=== PATIENT | female | born 1955 | race Caucasian/White ===

== ENCOUNTER 2021-12-17 21:09 | Emergency (ER) | payer MEDICARE ==
[~2021-12-17] VITALS: Ht 175.3 cm; Wt 90.7 kg
[2021-12-17 21:50] LABS: BASOPHILS ABSOLUTE AUTO 0.04 K/mm3 (0.00-0.23); BASOPHILS PERCENT AUTO 1 % (0-2); EOSINOPHILS ABSOLUTE AUTO 0.17 K/mm3 (0.00-0.68); EOSINOPHILS PERCENT AUTO 2 % (0-6); Hematocrit 35.6 % (33.0-51.0); Hemoglobin 11.5 g/dL (11.5-16.0); IMMATURE GRAN ABSOLUTE AUTO 0.03 K/mm3 (0.00-0.10); IMMATURE GRAN PERCENT AUTO 0 % (0-1); LYMPHOCYTES ABSOLUTE AUTO 2.74 K/mm3 (0.84-5.20); LYMPHOCYTES PERCENT AUTO 33 % (21-46); MONOCYTES ABSOLUTE AUTO 0.55 K/mm3 (0.16-1.47); MONOCYTES PERCENT AUTO 7 % (4-13); Mean Corpuscular HGB 30.3 pg (26.0-34.0); Mean Corpuscular HGB Conc 32.3 g/dL (31.5-36.5); Mean Corpuscular Volume 94 fL (80-100); Mean Platelet Volume 12.6 fL (9.1-12.4); NEUTROPHILS ABSOLUTE AUTO 4.75 K/mm3 (1.96-9.15); NEUTROPHILS PERCENT AUTO 57 % (41-73); Platelet Count 170 K/mm3 (150-400); RDW Standard Deviation 44.4 fL (35.1-46.3); White Blood Cell Count 8.28 K/mm3 (4.00-11.30)
[2021-12-17 22:35] LABS: Bilirubin, Total 0.5 mg/dL (0.1-1.0); Bun/Creatinine Ratio 19.5 (12.0-20.0); Calcium, Blood 10.8 mg/dL (8.5-10.1); Creatinine, Blood 1.69 mg/dL (0.40-1.00)
[2021-12-18] MEDS ORDERED: CATAPRES0.1 MG PO (04:17)
[2021-12-18] MEDS ORDERED: ALLO300 PO (04:18)
[2021-12-18] MEDS ORDERED: DULOXETINE HCL60 M1 PO (04:19)
[2021-12-18] MEDS ORDERED: FUROSEMIDE20 MG PO (04:21)
[2021-12-18] MEDS ORDERED: DOXEPIN HCL PO (04:22)
[2021-12-18] MEDS ORDERED: EUTHYROX50 MC1 PO (04:23)
[2021-12-18] MEDS ORDERED: LISI20 PO (04:24)
[2021-12-18] MEDS ORDERED: MELO7.5 PO (04:24)
[2021-12-18] MEDS ORDERED: METO5A PO (04:25)
[2021-12-18] MEDS ORDERED: ROSUVASTATIN CA10 MG PO (04:26)
[2021-12-18] MEDS ORDERED: MONT10T PO (04:26)
[2021-12-18] MEDS ORDERED: NOVOLOG FL100 UNIT/3 SC (04:28)
[2021-12-18] MEDS ORDERED: HYDR100 PO (04:30)
[2021-12-18] MEDS ORDERED: LIOT25 PO (05:52)
[2021-12-18] MEDS ORDERED: AMLO5 PO (06:30)
== END 2021-12-18 06:37 | disposition home or self-care (01) ==
LOC: ER 21:09
PROVIDERS: Physician Assistant
DX: I10 Essential (primary) hypertension (principal); R79.89 Other specified abnormal findings of blood chemistry; Z79.899 Other long term (current) drug therapy; Z88.5 Allergy status to narcotic agent; Z88.8 Allergy status to other drugs, medicaments and biological substances; Z79.4 Long term (current) use of insulin
CPT/HCPCS: 36415; 80053; 85025; A9270; J0360

== ENCOUNTER 2023-05-03 10:23 | Day surgery (SDC) | payer OTHER ==
[~2023-05-03] VITALS: Ht 175.3 cm; Wt 93.8 kg
[~2023-05-03 10:23] MED LIST: ALLO300 PO; AMLO5 PO; CATAPRES0.1 MG PO; DOXEPIN HCL PO; DULOXETINE HCL60 M1 PO; EUTHYROX50 MC1 PO; FUROSEMIDE20 MG PO; HYDR100 PO; LIOT25 PO; LISI20 PO; MELO7.5 PO; METO5A PO; MONT10T PO; NOVOLOG FL100 UNIT/3 SC; ROSUVASTATIN CA10 MG PO
[2023-05-03] MEDS ORDERED: ASPI300S PR (10:47)
[2023-05-03 11:49] VITALS: BP 124/84
--- NOTE | 2023-05-03 12:14 | NUR ---
05/03/23 1214 Melvina Johns PATIENT GIVEN INCENTIVE SPIROMETER DUE TO SPO2 FLUCTUATING BETWEEN 90-96%. PATIENT REPORTS THIS IS NORMAL FOR HER. AFTER USING INCENTIVE SPIROMETER SPO2 MAINTAINED AT 99% FOR ABOUT 5 MINUTES THEN WOULD FLUCTUATE BETWEEN 90-96%. PRIOR TO DISCHARGE SPO2 MAINTAINING AT 94% ON RA.
== END 2023-05-03 12:11 | disposition home or self-care (01) ==
LOC: ORSCSDS 10:23
PROVIDERS: Student in an Organized Health Care Education/Training Program
PROC: 08RJ3JZ Replacement of Right Lens with Synthetic Substitute, Percutaneous Approach (ICD-10-PCS; principal; 2023-05-03 11:45)
DX: E11.36 Type 2 diabetes mellitus with diabetic cataract (principal); H21.81 Floppy iris syndrome; I12.9 Hypertensive chronic kidney disease with stage 1 through stage 4 chronic kidney disease, or unspecified chronic kidney disease; E11.22 Type 2 diabetes mellitus with diabetic chronic kidney disease; N18.9 Chronic kidney disease, unspecified; Z79.82 Long term (current) use of aspirin; Z79.4 Long term (current) use of insulin; Z79.899 Other long term (current) drug therapy; Z87.891 Personal history of nicotine dependence
CPT/HCPCS: 82947; J2250; J3010; J7040; V2632

== ENCOUNTER 2024-10-21 22:26 | Inpatient (IN) | payer OTHER ==
[~2024-10-21] VITALS: Ht 175.3 cm; Wt 77.5 kg
[~2024-10-21 22:26] MED LIST changes: +ASPI300S PR; -CATAPRES0.1 MG PO; +CATAPRES0.2 M1 PO; -LISI20 PO; +LISINOPRIL PO
[2024-10-21] MEDS ORDERED: NS 1,000 ML IV SCH (22:40)
[2024-10-21 22:52] LABS: BASOPHILS ABSOLUTE AUTO 0.03 K/mm3 (0.00-0.23); BASOPHILS PERCENT AUTO 1 % (0-2); EOSINOPHILS ABSOLUTE AUTO 0.07 K/mm3 (0.00-0.68); EOSINOPHILS PERCENT AUTO 1 % (0-6); Hemoglobin 12.6 g/dL (11.5-16.0); IMMATURE GRAN ABSOLUTE AUTO 0.01 K/mm3 (0.00-0.10); IMMATURE GRAN PERCENT AUTO 0 % (0-1); LYMPHOCYTES ABSOLUTE AUTO 2.12 K/mm3 (0.84-5.20); LYMPHOCYTES PERCENT AUTO 36 % (21-46); MONOCYTES ABSOLUTE AUTO 0.35 K/mm3 (0.16-1.47); MONOCYTES PERCENT AUTO 6 % (4-13); Mean Corpuscular HGB 30.5 pg (26.0-34.0); Mean Corpuscular HGB Conc 32.3 g/dL (31.5-36.5); Mean Corpuscular Volume 94 fL (80-100); NEUTROPHILS ABSOLUTE AUTO 3.27 K/mm3 (1.96-9.15); NEUTROPHILS PERCENT AUTO 56 % (41-73); Platelet Count 117 K/mm3 (150-400); RDW Coefficient Variation 14.1 % (11.7-14.2); RDW Standard Deviation 49.1 fL (35.1-46.3); Red Blood Cell Count 4.13 M/mm3 (3.80-5.20); White Blood Cell Count 5.85 K/mm3 (4.00-11.30)
[2024-10-21 22:55] LABS: Mean Platelet Volume 13.3 fL (9.1-12.4)
[2024-10-21 23:06] LABS: U Amphetamine Screen Not Detected; U Barbituate Screen Not Detected; U Benzodiazapine Screen Not Detected; U Buprenorphine Screen Not Detected; U Cannabinoids Screen Not Detected; U Cocaine Screen Not Detected; U Methadone Screen Not Detected; U Methamphetamine Screen Not Detected; U Opiates Screen Not Detected; U Oxycodone Screen DETECTED; U Phencyclidine Screen Not Detected
[2024-10-21 23:18] LABS: Ethanol (Alcohol), Blood, Med <3 mg/dL
[2024-10-21 23:19] LABS: Alanine Aminotransfer (ALT/SGP 18 U/L (12-78); Albumin, Blood 3.5 g/dL (3.4-5.0); Albumin/Globulin Ratio 1.1 (0.8-1.8); Alk Phos 105 U/L (50-136); Anion Gap 10 mmol/L (3-11); Aspartate Aminotrans (AST/SGOT 21 U/L (12-37); Bilirubin, Total 0.5 mg/dL (0.1-1.0); Blood Urea Nitrogen 54 mg/dL (8-24); Bun/Creatinine Ratio 19.4 (12.0-20.0); CO2, Blood 18 mmol/L (21-32); Calcium, Blood 7.9 mg/dL (8.5-10.1); Chloride, Blood 109 mmol/L (98-108); Creatinine, Blood 2.78 mg/dL (0.40-1.00); Globulin, Blood 3.3 g/dL (2.2-4.0); Glomerular Filtration Rate 18 (60-); Glucose, Blood 93 mg/dL (70-99); Potassium, Blood 4.2 mmol/L (3.5-5.5); Sodium, Blood 133 mmol/L (136-145); Total Protein, Blood 6.8 g/dL (6.4-8.2)
[2024-10-21 23:59] LABS: Source, Urine Clean Catch
[2024-10-22 00:04] LABS: Bilirubin, Urine Neg (Neg); Blood, Urine Neg (Neg); Glucose Qualitative, Urine 1+ (Neg); Ketones, Urine 2+ (Neg); Leukocyte Esterase, Urine Neg (Neg); Nitrite, Urine Neg (Neg); Protein, Urine Neg (Neg); Urobilinogen, Urine NORM (Normal)
[2024-10-22 00:12] LABS: Appearance, Urine Clear (Clear); Color, Urine Yellow (P-Yellow)
[2024-10-22] MEDS ORDERED: Ondansetron HCl 2 MG / ML 2ML Vial IV PRN (00:20)
[2024-10-22] MEDS ORDERED: NS 1,000 ML IV SCH ×3 (00:20→11:25)
[2024-10-22 00:26] LABS: Magnesium, Blood 2.3 mg/dL (1.6-2.4)
[2024-10-22] MEDS ORDERED: NS 1,000 ML IV ONE (00:31)
[2024-10-22 04:22] LABS: Free Thyroxine 0.98 ng/dL (0.70-1.60)
[2024-10-22 04:31] VITALS: BP 126/72
--- NOTE | 2024-10-22 04:57 | NUR ---
SHIFT SUMMARY PT ARRIVED TO UNIT @ 0400. A&OX4. POOR HISTORIAN AND MILDLY FORGETFUL HOWEVER ABLE TO FOLLOW COMMANDS APPROPRIATELY AND VERY PLEASANT. PT STATES SHE IS UNSURE WHY SHE TAKES MOST OF HER MEDICATIONS AND STATES SHE TAKES 15MG OXYCODONE FOR HER BACK PAIN 3X/DAY. NO PAIN NOTED AT THIS TIME. VSS ON RA. BPs WNL NOW. NS RUNNING @ 75CC/HR. PT UNDERSTANDING OF NPO STATUS AND REMAINING BEDREST UNTIL FEELING STRONGER. PT STATES SHE FELL YESTERDAY AT HOME D/T INCREASED WEAKNESS. NO FURTHER QUESTIONS OR CONCERNS AT THIST TIME. CALL ROLDAN WITHIN REACH WITH BED ALARM ON. WILL CONTINUE WITH PLAN OF CARE.
[2024-10-22 07:13] LABS: BASOPHILS ABSOLUTE AUTO 0.03 K/mm3 (0.00-0.23); BASOPHILS PERCENT AUTO 1 % (0-2); EOSINOPHILS ABSOLUTE AUTO 0.09 K/mm3 (0.00-0.68); EOSINOPHILS PERCENT AUTO 2 % (0-6); Hematocrit 37.7 % (33.0-51.0); Hemoglobin 12.2 g/dL (11.5-16.0); IMMATURE GRAN ABSOLUTE AUTO 0.01 K/mm3 (0.00-0.10); IMMATURE GRAN PERCENT AUTO 0 % (0-1); LYMPHOCYTES ABSOLUTE AUTO 1.61 K/mm3 (0.84-5.20); LYMPHOCYTES PERCENT AUTO 37 % (21-46); MONOCYTES ABSOLUTE AUTO 0.19 K/mm3 (0.16-1.47); MONOCYTES PERCENT AUTO 4 % (4-13); Mean Corpuscular HGB 31.1 pg (26.0-34.0); Mean Corpuscular HGB Conc 32.4 g/dL (31.5-36.5); Mean Corpuscular Volume 96 fL (80-100); Mean Platelet Volume 13.4 fL (9.1-12.4); NEUTROPHILS ABSOLUTE AUTO 2.43 K/mm3 (1.96-9.15); NEUTROPHILS PERCENT AUTO 56 % (41-73); Platelet Count 96 K/mm3 (150-400); RDW Coefficient Variation 14.5 % (11.7-14.2); RDW Standard Deviation 51.8 fL (35.1-46.3); Red Blood Cell Count 3.92 M/mm3 (3.80-5.20); White Blood Cell Count 4.36 K/mm3 (4.00-11.30)
[2024-10-22 07:29] LABS: Albumin/Globulin Ratio 0.9 (0.8-1.8); Bilirubin, Total 0.4 mg/dL (0.1-1.0); Calcium, Blood 7.2 mg/dL (8.5-10.1); Creatinine, Blood 2.35 mg/dL (0.40-1.00); Globulin, Blood 3.2 g/dL (2.2-4.0); Total Protein, Blood 6.2 g/dL (6.4-8.2)
[2024-10-22 08:09] VITALS: BP 133/70
[2024-10-22] MEDS ORDERED: Enoxaparin 30 MG/0.3 ML SYR SC SCH (09:00)
[2024-10-22] MEDS ORDERED: CALC.25 PO (10:07)
[2024-10-22] MEDS ORDERED: TRULICITY SC (10:09)
[2024-10-22] MEDS ORDERED: POTCHL20ER PO (10:10)
[2024-10-22] MEDS ORDERED: CINA30 PO (10:12)
[2024-10-22] MEDS ORDERED: AMLODIPINE BESY10 MG PO (10:14)
[2024-10-22] MEDS ORDERED: OXYCODONE HCL15 MG PO (10:18)
[2024-10-22] MEDS ORDERED: DOXE50 PO (10:26)
[2024-10-22] MEDS ORDERED: FARXIGA10 MG PO (10:27)
[2024-10-22] MEDS ORDERED: BUSPIRONE HCL30 M6 PO (10:29)
[2024-10-22] MEDS ORDERED: PROLIA60 MG/1 ML SC (10:30)
[2024-10-22] MEDS ORDERED: OxyCODONE HCL 5 MG TAB PO PRN (11:20)
[2024-10-22] MEDS ORDERED: Allopurinol 300 MG Tab PO SCH (12:00)
--- NOTE | 2024-10-22 15:09 | NUR ---
UPON SHIFT ASSESSMENT, PT REPORTS TENDERNESS IN LOWER QUADRANTS OF ABDOMEN. SHE REPORTS THAT IS HER WAY OF TELLING HER BLADDER IS FULL AT HOME BUT DOES NOT HAVE THE SENSATION TO URINATE. WICKING SYSTEM IN PLACE AND OUTPUT WAS 300ML. PT EDUCATED ON HOW WICKING SYSTEM WORKS AND ENCOURAGED TO GO WHEN SHE HAS SENSATION. PT CONFIRMED UNDERSTANDING BY RESTATING. UPON REASSESSMENT, WICKING SYSTEM HAD A TOTAL OUTPUT OF 450ML. PT REPORTS MORE TENDERNESS IN LOWER QUADRANTS OF ABDOMEN AND SEVERE DISTENTION. BLADDER SCAN PERFORMED AND SHOWED >2300ML. DR. BURGOS NOTIFIED AND INSTRUCTED TO STRAIGHT CATH AND ORDERED RENAL ULTRASOUND. STRAIGHT CATH PERFORMED WITH AN OUTPUT OF 2400ML CLEAR YELLOW URINE. PT TOLERATED STRAIGHT CATH WELL AND REPORTED NO TENDERNESS IN ABDOMEN. ABDOMEN SOFT AND NONDISTENDED.
[2024-10-22 17:12] VITALS: BP 132/74
--- NOTE | 2024-10-22 17:34 | NUR ---
PT A&OX4 WITH FREQUENT DROWSINESS. SHE RESPONDS TO VERBAL STIMULI. SHE FOLLOWS COMMANDS AND IS CALM AND COOPERATIVE. VSS ON RA AND BPS WNL. NS RUNNING AT 100ML/HR FOR 24 HOURS. ABDOMEN TENDERNESS AND DISTENTION. BLADDER SCAN AND STRAIGHT CATH COMPLETED PER MD. SEE NURSE NOTES. RENAL ULTRASOUND ORDERD. PT HAS TREMORS AND IS DIAPHORETIC. SHE DENIES ALCOHOL USE. PT TAKES OXYCODONE 15MG 3X/DAY FOR CHRONIC LOW BACK PAIN. PT REPORTS 6/10 PAIN IN BACK. MEDICATED PER EMAR. PT SITTING UP IN BED EATING DINNER WITH CALL LIGHT IN REACH AND BED LOCKED, LOW, AND ALARM ON.
[2024-10-22] MEDS ORDERED: CloNIDine 0.1 MG Tab PO SCH (17:45)
[2024-10-22] MEDS ORDERED: Doxepin HCL 50 MG CAP PO SCH ×2 (21:00)
[2024-10-22] MEDS ORDERED: Montelukast Sodium 10 MG Tab PO SCH (21:00)
[2024-10-22] MEDS ORDERED: BusPIRone HCl 10 MG Tab PO SCH (21:00)
[2024-10-22] MEDS ORDERED: DULoxetine HCL 60 MG Capsule DR PO SCH (21:00)
[2024-10-22] MEDS ORDERED: Rosuvastatin Calcium 10 MG Tab PO SCH (21:00)
[2024-10-22 21:02] VITALS: BP 109/71
[2024-10-22 23:27] VITALS: BP 113/72
[2024-10-23 03:39] VITALS: BP 134/74
--- NOTE | 2024-10-23 04:23 | NUR ---
SHIFT SUMMARY THIS RN ASSUMED CARE OF PATIENT AT 1900. PT LETHARGIC BUT EASILY AWOKEN BY VERBAL STIMULI. ORIENTED X3-4. UNSURE OF SPECIFIC DATE BUT KNOWS MONTH/YEAR. NO OTHER NEURO DEFICITS NOTED. PT WITH 1200MLS AT BEGINNING OF SHIFT ON BLADDER SCAN. PER MD BURGOS, CALDWELL CATHETER PLACED FOR RETENTION. PT WITH OVER 2L OUT THIS SHIFT. COMPLETED NS INFUSION PER EMAR. VSS. BED IN LOWEST POSITION AND CALL LIGHT WITHIN REACH. THIS RN WILL REPORT TO ONCOMING DAYSHIFT RN.
[2024-10-23 04:34] LABS: Calcium, Blood 7.3 mg/dL (8.5-10.1); Creatinine, Blood 1.9 mg/dL (0.40-1.00); Potassium, Blood 4.2 mmol/L (3.5-5.5)
[2024-10-23] MEDS ORDERED: Levothyroxine Sodium 0.05 MG Tab PO SCH (06:00)
[2024-10-23 07:39] VITALS: BP 122/77
[2024-10-23] MEDS ORDERED: NS 1,000 ML IV ONE (09:00)
[2024-10-23] MEDS ORDERED: Calcitriol 0.25 MCG Cap PO SCH (09:00)
[2024-10-23] MEDS ORDERED: Empagliflozin 25 MG TAB PO SCH (09:00)
[2024-10-23] MEDS ORDERED: Tamsulosin HCl 0.4 MG Cap PO SCH (09:00)
[2024-10-23 15:51] VITALS: BP 145/61
--- NOTE | 2024-10-23 17:27 | NUR ---
PT A&OX3 TO PERSON, PLACE, AND DATE. POOR HISTORNIAN AND REPORTS SHE DOES NOT REMEMBER WHY SHE WAS BROUGHT TO ED. 1 PERSON ASSIST TO CHAIR. PT TOLERATED AMBULATING WELL BUT LE WEAK. CALDWELL DRAINING TO GRAVITY CLEAR YELLOW URINE. PT REPORTED NO PAIN OR BURNING. NO S/S OF INFECTION. VSS ON RA. PT TRANSFERRED TO MEDICAL AND REPORT GIVEN TO NURSE.
--- NOTE | 2024-10-23 18:07 | NUR ---
ASSUMED CARE OF PT. PT ARRIVED FROM PCU A/O X4 SEEMS LIKE MENTATION IS A LOT BETTER THIS DAY. PT ABLE TO FOLLOW COMMANDS AND MAKE NEEDS KNOWN, CALL LIGHT WITHIN REACH AND BEDCHECK IN PLACE .
[2024-10-23 19:33] VITALS: BP 171/76
[2024-10-23 19:35] VITALS: BP 168/73
[2024-10-23 23:55] VITALS: BP 168/77
[2024-10-24] VITALS (7 sets, daily range): BP systolic 154–203; BP diastolic 70–97
--- NOTE | 2024-10-24 03:42 | NUR ---
SHIFT SUMMARY PT ALERT ORIENTED X 4 ABLE TO VERBALIZE NEEDS REQUIRES 1 PERSON SBA TO AMBULATE TO THE BATHROOM. CALDWELL CATHETER INTACT DRAINING YELLOW URINE. NO C/O PAIN THIS SHIFT. 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 BP SLIGHTLY HIGH AT 168. ALL OTHER VSS ON RA SATTING AT 99%. LABS TO BE DONE THIS AM. RESTING IN BED AT THIS TIME WITH CALL LIGHT IN REACH
[2024-10-24] MEDS ORDERED: HydrALAZINE HCl 20 MG / ML 1ML Vial IV ONE (05:05)
[2024-10-24 05:39] LABS: Albumin, Blood 2.8 g/dL (3.4-5.0); Anion Gap 11 mmol/L (3-11); Blood Urea Nitrogen 27 mg/dL (8-24); Bun/Creatinine Ratio 19.1 (12.0-20.0); CO2, Blood 21 mmol/L (21-32); Chloride, Blood 115 mmol/L (98-108); Creatinine, Blood 1.41 mg/dL (0.40-1.00); Glomerular Filtration Rate 41 (60-); Glucose, Blood 90 mg/dL (70-99); Phosphorus, Blood 2.9 mg/dL (2.5-4.9); Potassium, Blood 3.5 mmol/L (3.5-5.5); Sodium, Blood 143 mmol/L (136-145)
[2024-10-24] MEDS ORDERED: AmLODIPine Besylate 5 MG Tab PO SCH (09:00)
[2024-10-24] MEDS ORDERED: HydrALAZINE HCl 20 MG / ML 1ML Vial IV PRN (15:05)
[2024-10-24] MEDS ORDERED: Acetaminophen 325 MG TABLET PO PRN (17:25)
--- NOTE | 2024-10-24 17:40 | NUR ---
SHIFT SUMMARY PT A&OX4, AMB W/ ASSIST, TOLERATING PO, VOIDING, AND PAIN MANAGED PER EMAR. PT HYPERTENSIVE, BUT ASYMPTOMATIC. NEW ORDER RECEIVED FOR HYDRALAZINE PRN AND HOME BP MED, BOTH GIVEN THIS SHIFT. PT WORKED W/ PHYSICAL THERAPY AND TOLERATED IT WELL, SEE THERAPY NOTE. NO OTHER ACUTE CHANGES. CALL LIGHT WITHIN REACH AND PT ABLE TO MAKE NEEDS KNOWN.
[2024-10-25 04:04] VITALS: BP 146/88
--- NOTE | 2024-10-25 05:06 | NUR ---
SHIFT SUMMARY PT SLEPT LONG INTERVALS THROUGH THE NIGHT. MEDICATED FOR HEADACHE PER EMAR. TURNS SELF INDEPENDENTLY IN BED. CALDWELL DRAINING CLEAR YELLOW URINE. BED IN LOWEST POSITION, CALL LIGHT WITHIN REACH, SIDERAILS UP X2.
[2024-10-25 06:06] LABS: Bun/Creatinine Ratio 13.7 (12.0-20.0); Calcium, Blood 9.1 mg/dL (8.5-10.1); Creatinine, Blood 1.61 mg/dL (0.40-1.00)
[2024-10-25 07:36] VITALS: BP 170/85
[2024-10-25 13:20] VITALS: BP 140/81
[2024-10-25 16:24] VITALS: BP 158/88
--- NOTE | 2024-10-25 18:02 | NUR ---
SHIFT SUMMARY PAIN MANAGED PER EMAR. CALDWELL REMOVED AND PT HAD POST VOID OF 800 MLS. PT WORKED W/ PHYSICAL THERAPY AND TOLERATED IT WELL. NO OTHER ACUTE CHANGES. CALL LIGHT WITHIN REACH AND PT ABLE TO MAKE NEEDS KNOWN.
[2024-10-25 19:22] VITALS: BP 177/96
[2024-10-25 23:24] VITALS: BP 149/82
[2024-10-26] VITALS (7 sets, daily range): BP systolic 148–171; BP diastolic 84–95
--- NOTE | 2024-10-26 04:47 | NUR ---
SHIFT SUMMARY PT SLEPT INTERMITTENTLY DURING THE NIGHT. UP TO BATHROOM WITH FWW AND SBA, VOIDING LARGE AMOUNTS AFTER CALDWELL D/C'D DURING PRIOR SHIFT. PT HAS DENIED THE NEED FOR PAIN MEDICATION THIS SHIFT. BED IN LOWEST POSITION, CALL LIGHT WITHIN REACH, SIDERAILS UP X2.
[2024-10-26 06:04] LABS: BASOPHILS ABSOLUTE AUTO 0.04 K/mm3 (0.00-0.23); BASOPHILS PERCENT AUTO 1 % (0-2); EOSINOPHILS ABSOLUTE AUTO 0.24 K/mm3 (0.00-0.68); EOSINOPHILS PERCENT AUTO 4 % (0-6); Hemoglobin 13.3 g/dL (11.5-16.0); IMMATURE GRAN ABSOLUTE AUTO 0.01 K/mm3 (0.00-0.10); IMMATURE GRAN PERCENT AUTO 0 % (0-1); LYMPHOCYTES ABSOLUTE AUTO 3.19 K/mm3 (0.84-5.20); LYMPHOCYTES PERCENT AUTO 54 % (21-46); MONOCYTES ABSOLUTE AUTO 0.23 K/mm3 (0.16-1.47); MONOCYTES PERCENT AUTO 4 % (4-13); Mean Corpuscular HGB 30.9 pg (26.0-34.0); Mean Corpuscular HGB Conc 31.7 g/dL (31.5-36.5); Mean Corpuscular Volume 98 fL (80-100); Mean Platelet Volume 12.8 fL (9.1-12.4); NEUTROPHILS ABSOLUTE AUTO 2.19 K/mm3 (1.96-9.15); NEUTROPHILS PERCENT AUTO 37 % (41-73); Platelet Count 138 K/mm3 (150-400); RDW Coefficient Variation 14.1 % (11.7-14.2); RDW Standard Deviation 51.1 fL (35.1-46.3)
[2024-10-26 06:39] LABS: Albumin, Blood 3.4 g/dL (3.4-5.0); Anion Gap 9 mmol/L (3-11); Blood Urea Nitrogen 26 mg/dL (8-24); Bun/Creatinine Ratio 17.3 (12.0-20.0); CO2, Blood 24 mmol/L (21-32); Calcium, Blood 9.6 mg/dL (8.5-10.1); Chloride, Blood 110 mmol/L (98-108); Glomerular Filtration Rate 38 (60-); Glucose, Blood 104 mg/dL (70-99); Phosphorus, Blood 2.6 mg/dL (2.5-4.9); Sodium, Blood 139 mmol/L (136-145)
[2024-10-26] MEDS ORDERED: Lactated Ringer's 1,000 ML IV SCH ×2 (08:45→15:05)
[2024-10-26] MEDS ORDERED: HydroCHLOROthiazide 25 mg Tab PO SCH (09:00)
[2024-10-26 14:31] LABS: Bun/Creatinine Ratio 17.2 (12.0-20.0); Calcium, Blood 9.9 mg/dL (8.5-10.1); Creatinine, Blood 1.51 mg/dL (0.40-1.00); Potassium, Blood 3.9 mmol/L (3.5-5.5)
--- NOTE | 2024-10-26 17:42 | NUR ---
PT IS AOX4, STBY WITH WALKER TO BATHROOM. PT HAD NO C/O PAIN, SOB, OR CHEST PAIN. PT HAS BEEN ON FLUIDS THROUGH THE DAY. PT HAS NO QUESTIONS OR CONCERNS AT THIS TIME.
[2024-10-27 03:47] VITALS: BP 151/88
[2024-10-27 06:32] LABS: BASOPHILS ABSOLUTE AUTO 0.03 K/mm3 (0.00-0.23); BASOPHILS PERCENT AUTO 1 % (0-2); EOSINOPHILS ABSOLUTE AUTO 0.26 K/mm3 (0.00-0.68); EOSINOPHILS PERCENT AUTO 6 % (0-6); Hematocrit 35.3 % (33.0-51.0); Hemoglobin 11.3 g/dL (11.5-16.0); IMMATURE GRAN ABSOLUTE AUTO 0.01 K/mm3 (0.00-0.10); IMMATURE GRAN PERCENT AUTO 0 % (0-1); LYMPHOCYTES PERCENT AUTO 50 % (21-46); MONOCYTES ABSOLUTE AUTO 0.28 K/mm3 (0.16-1.47); MONOCYTES PERCENT AUTO 6 % (4-13); Mean Corpuscular Volume 97 fL (80-100); NEUTROPHILS ABSOLUTE AUTO 1.69 K/mm3 (1.96-9.15); NEUTROPHILS PERCENT AUTO 37 % (41-73); Platelet Count 109 K/mm3 (150-400); RDW Coefficient Variation 13.6 % (11.7-14.2); RDW Standard Deviation 48.3 fL (35.1-46.3); Red Blood Cell Count 3.64 M/mm3 (3.80-5.20); White Blood Cell Count 4.57 K/mm3 (4.00-11.30)
[2024-10-27 06:53] LABS: Bun/Creatinine Ratio 16.9 (12.0-20.0); Creatinine, Blood 1.42 mg/dL (0.40-1.00); Potassium, Blood 3.8 mmol/L (3.5-5.5)
[2024-10-27 07:29] VITALS: BP 152/86
[2024-10-27 11:46] VITALS: BP 162/89
[2024-10-27 15:16] VITALS: BP 165/85
--- NOTE | 2024-10-27 17:54 | NUR ---
PT HAS HAD C/O HEADACHE TODAY BUT PRN TYLENOL RESOLVED PAIN. PT IS AOX4,VSS AND ON RA. PT HAS NO QUESTIONS OR CONCERNS AT THIS TIME
[2024-10-27 19:18] VITALS: BP 177/89
[2024-10-28 00:47] VITALS: BP 129/79
[2024-10-28 03:48] VITALS: BP 132/84
[2024-10-28 05:57] LABS: BASOPHILS ABSOLUTE AUTO 0.04 K/mm3 (0.00-0.23); BASOPHILS PERCENT AUTO 1 % (0-2); EOSINOPHILS ABSOLUTE AUTO 0.24 K/mm3 (0.00-0.68); EOSINOPHILS PERCENT AUTO 5 % (0-6); Hematocrit 35.5 % (33.0-51.0); Hemoglobin 11.3 g/dL (11.5-16.0); IMMATURE GRAN ABSOLUTE AUTO 0.01 K/mm3 (0.00-0.10); IMMATURE GRAN PERCENT AUTO 0 % (0-1); LYMPHOCYTES ABSOLUTE AUTO 2.72 K/mm3 (0.84-5.20); LYMPHOCYTES PERCENT AUTO 52 % (21-46); MONOCYTES ABSOLUTE AUTO 0.29 K/mm3 (0.16-1.47); MONOCYTES PERCENT AUTO 6 % (4-13); Mean Corpuscular HGB 31.2 pg (26.0-34.0); Mean Corpuscular HGB Conc 31.8 g/dL (31.5-36.5); Mean Corpuscular Volume 98 fL (80-100); Mean Platelet Volume 12.8 fL (9.1-12.4); NEUTROPHILS PERCENT AUTO 37 % (41-73); Platelet Count 108 K/mm3 (150-400); RDW Coefficient Variation 13.8 % (11.7-14.2); RDW Standard Deviation 49.5 fL (35.1-46.3); Red Blood Cell Count 3.62 M/mm3 (3.80-5.20)
[2024-10-28 06:21] LABS: Bun/Creatinine Ratio 18.3 (12.0-20.0); Calcium, Blood 9.9 mg/dL (8.5-10.1); Creatinine, Blood 1.42 mg/dL (0.40-1.00); Potassium, Blood 3.8 mmol/L (3.5-5.5)
[2024-10-28 07:24] VITALS: BP 148/89
[2024-10-28] MEDS ORDERED: HYDCHL25 PO (12:52)
[2024-10-28] MEDS ORDERED: TAMS.4ER PO (12:53)
--- NOTE | 2024-10-28 16:34 | NUR ---
pt dicharged. all pivs removed and d/c packet in hand
== END 2024-10-28 16:00 | disposition home or self-care (01) | DRG 917 ==
LOC: ER 22:26 → ERHOLD 22:27 → PCU 22:27 → MEDS 10-23 16:03
PROVIDERS: Emergency Medicine; Family Medicine; Internal Medicine; ADMIT Internal Medicine
DX: T40.2X1A Poisoning by other opioids, accidental (unintentional), initial encounter (principal); G92.8 Other toxic encephalopathy; G93.41 Metabolic encephalopathy; N17.9 Acute kidney failure, unspecified; N20.1 Calculus of ureter; N18.30 Chronic kidney disease, stage 3 unspecified; R33.9 Retention of urine, unspecified; I12.9 Hypertensive chronic kidney disease with stage 1 through stage 4 chronic kidney disease, or unspecified chronic kidney disease; E03.9 Hypothyroidism, unspecified; F32.A Depression, unspecified; E79.0 Hyperuricemia without signs of inflammatory arthritis and tophaceous disease; R94.31 Abnormal electrocardiogram [ECG] [EKG]; E78.5 Hyperlipidemia, unspecified; R60.0 Localized edema; Z88.1 Allergy status to other antibiotic agents; Z88.5 Allergy status to narcotic agent; Z88.8 Allergy status to other drugs, medicaments and biological substances; Z79.890 Hormone replacement therapy; Z79.4 Long term (current) use of insulin; Z79.1 Long term (current) use of non-steroidal anti-inflammatories (NSAID); Z79.82 Long term (current) use of aspirin
CPT/HCPCS: 36415; 70450; 71045; 76770; 80048; 80053; 80069; 80320; 81003; 82140; 82570; 83605; 83735; 83880; 84145; 84300; 84439; 84443; 84484; 85025; 93005; 93010; 96372; 97110; 97116; 97161; 97530; 99285-25; A6590; A9270; G0378; J0360; J1650; J7030; J7120

== ENCOUNTER 2025-03-01 11:46 | Inpatient (IN) | payer OTHER ==
[~2025-03-01] VITALS: Ht 175.3 cm; Wt 84.0 kg
[~2025-03-01 11:46] MED LIST changes: +AMLODIPINE BESY10 MG PO; +BUSPIRONE HCL30 M6 PO; +CALC.25 PO; +CINA30 PO; +DOXE50 PO; +FARXIGA10 MG PO; +HYDCHL25 PO; -LISINOPRIL PO; +OXYCODONE HCL15 MG PO; +POTCHL20ER PO; +PROLIA60 MG/1 ML SC; +TAMS.4ER PO; +TRULICITY SC; +ZESTRIL40 MG PO
[2025-03-01 12:19] LABS: BASOPHILS ABSOLUTE AUTO 0.05 K/mm3 (0.00-0.23); BASOPHILS PERCENT AUTO 0 % (0-2); EOSINOPHILS ABSOLUTE AUTO 0.02 K/mm3 (0.00-0.68); EOSINOPHILS PERCENT AUTO 0 % (0-6); Hematocrit 50.5 % (33.0-51.0); Hemoglobin 17.2 g/dL (11.5-16.0); IMMATURE GRAN ABSOLUTE AUTO 0.04 K/mm3 (0.00-0.10); IMMATURE GRAN PERCENT AUTO 0 % (0-1); LYMPHOCYTES ABSOLUTE AUTO 2.61 K/mm3 (0.84-5.20); LYMPHOCYTES PERCENT AUTO 21 % (21-46); MONOCYTES ABSOLUTE AUTO 0.40 K/mm3 (0.16-1.47); MONOCYTES PERCENT AUTO 3 % (4-13); Mean Corpuscular HGB Conc 34.1 g/dL (31.5-36.5); Mean Corpuscular Volume 90 fL (80-100); NEUTROPHILS ABSOLUTE AUTO 9.35 K/mm3 (1.96-9.15); NEUTROPHILS PERCENT AUTO 75 % (41-73); NRBC ABSOLUTE 0.00 K/mm3 (0.00-0.02); NRBC Auto 0.0 /100 WBC (0.0-0.2); Platelet Count 235 K/mm3 (150-400); RDW Coefficient Variation 13.8 % (11.7-14.2); RDW Standard Deviation 45.9 fL (35.1-46.3)
[2025-03-01 12:50] LABS: Alanine Aminotransfer (ALT/SGP 21.0 U/L (12-78); Albumin, Blood 3.3 g/dL (3.4-5.0); Albumin/Globulin Ratio 0.8 (0.8-1.8); Anion Gap 12.0 mmol/L (3-11); Aspartate Aminotrans (AST/SGOT 32.0 U/L (12-37); Bilirubin, Total 0.7 mg/dL (0.1-1.0); Blood Urea Nitrogen 61.0 mg/dL (8-24); CO2, Blood 12.0 mmol/L (21-32); Calcium, Blood 8.7 mg/dL (8.5-10.1); Chloride, Blood 106.0 mmol/L (98-108); Creatinine, Blood 2.0 mg/dL (0.40-1.00); Globulin, Blood 4.2 g/dL (2.2-4.0); Glucose, Blood 170.0 mg/dL (70-99); Potassium, Blood 3.2 mmol/L (3.5-5.5); Sodium, Blood 127.0 mmol/L (136-145); Total Protein, Blood 7.5 g/dL (6.4-8.2)
[2025-03-01] MEDS ORDERED: NS 1,000 ML IV SCH (13:40)
[2025-03-01 13:51] LABS: Thyroid Stimulating Hormone 0.562 uIU/mL (0.360-4.800)
[2025-03-01 15:35] LABS: Source, Urine Clean Catch
[2025-03-01 15:43] LABS: Bilirubin, Urine Neg (Neg); Color, Urine Yellow (P-Yellow); Glucose Qualitative, Urine 3+ (Neg); Ketones, Urine 2+ (Neg); Leukocyte Esterase, Urine 3+ (Neg); Protein, Urine 2+ (Neg); Specific Gravity, Urine 1.020 (1.003-1.022); Urobilinogen, Urine NORM (Normal)
[2025-03-01 15:54] LABS: Red Blood Cells, Urine 0-2 /hpf (0-2)
[2025-03-01 16:05] LABS: U Amphetamine Screen Not Detected; U Barbituate Screen Not Detected; U Benzodiazapine Screen Not Detected; U Buprenorphine Screen Not Detected; U Cannabinoids Screen DETECTED; U Cocaine Screen Not Detected; U Methadone Screen Not Detected; U Methamphetamine Screen Not Detected; U Opiates Screen Not Detected; U Oxycodone Screen Not Detected; U Phencyclidine Screen Not Detected
[2025-03-01] MEDS ORDERED: Enoxaparin 30 MG/0.3 ML SYR SC SCH (17:00)
[2025-03-01] MEDS ORDERED: Sodium Bicarb 8.4% Inj 75 MEQ in Sodium Chloride 0.45% 1,000 ML IV SCH (17:00)
[2025-03-01] MEDS ORDERED: CefTRIAXone Sodium 1,000 MG in NS 100 ML IV SCH (18:00)
[2025-03-01] MEDS ORDERED: NS 500 ML IV SCH (18:50)
[2025-03-01 20:20] VITALS: BP 175/90
[2025-03-01 21:23] LABS: Anion Gap 12.0 mmol/L (3-11); Blood Urea Nitrogen 58.0 mg/dL (8-24); CO2, Blood 13.0 mmol/L (21-32); Calcium, Blood 7.2 mg/dL (8.5-10.1); Chloride, Blood 109.0 mmol/L (98-108); Creatinine, Blood 1.96 mg/dL (0.40-1.00); Glucose, Blood 121.0 mg/dL (70-99); Potassium, Blood 3.0 mmol/L (3.5-5.5); Sodium, Blood 131.0 mmol/L (136-145)
[2025-03-01] MEDS ORDERED: POTCHL20ER PO (23:09)
[2025-03-01] MEDS ORDERED: CATAPRES0.2 M1 PO (23:11)
[2025-03-02 04:34] VITALS: BP 156/78
[2025-03-02 04:56] LABS: BASOPHILS ABSOLUTE AUTO 0.03 K/mm3 (0.00-0.23); BASOPHILS PERCENT AUTO 0 % (0-2); EOSINOPHILS ABSOLUTE AUTO 0.02 K/mm3 (0.00-0.68); EOSINOPHILS PERCENT AUTO 0 % (0-6); Hematocrit 41.3 % (33.0-51.0); Hemoglobin 14.1 g/dL (11.5-16.0); IMMATURE GRAN ABSOLUTE AUTO 0.03 K/mm3 (0.00-0.10); IMMATURE GRAN PERCENT AUTO 0 % (0-1); LYMPHOCYTES ABSOLUTE AUTO 2.47 K/mm3 (0.84-5.20); LYMPHOCYTES PERCENT AUTO 20 % (21-46); MONOCYTES ABSOLUTE AUTO 0.70 K/mm3 (0.16-1.47); MONOCYTES PERCENT AUTO 6 % (4-13); Mean Corpuscular HGB Conc 34.1 g/dL (31.5-36.5); Mean Corpuscular Volume 89 fL (80-100); NEUTROPHILS ABSOLUTE AUTO 9.15 K/mm3 (1.96-9.15); NEUTROPHILS PERCENT AUTO 74 % (41-73); NRBC ABSOLUTE 0.00 K/mm3 (0.00-0.02); NRBC Auto 0.0 /100 WBC (0.0-0.2); Platelet Count 168 K/mm3 (150-400); RDW Coefficient Variation 14.0 % (11.7-14.2); RDW Standard Deviation 45.2 fL (35.1-46.3)
[2025-03-02 05:19] LABS: Magnesium, Blood 2.3 mg/dL (1.6-2.4)
[2025-03-02 05:21] LABS: Alanine Aminotransfer (ALT/SGP 19.0 U/L (12-78); Albumin, Blood 2.7 g/dL (3.4-5.0); Albumin/Globulin Ratio 0.8 (0.8-1.8); Anion Gap 11.0 mmol/L (3-11); Aspartate Aminotrans (AST/SGOT 28.0 U/L (12-37); Bilirubin, Total 0.5 mg/dL (0.1-1.0); Blood Urea Nitrogen 58.0 mg/dL (8-24); CO2, Blood 14.0 mmol/L (21-32); Calcium, Blood 7.5 mg/dL (8.5-10.1); Chloride, Blood 114.0 mmol/L (98-108); Creatinine, Blood 1.91 mg/dL (0.40-1.00); Globulin, Blood 3.3 g/dL (2.2-4.0); Glucose, Blood 106.0 mg/dL (70-99); Potassium, Blood 3.1 mmol/L (3.5-5.5); Sodium, Blood 136.0 mmol/L (136-145); Total Protein, Blood 6.0 g/dL (6.4-8.2)
--- NOTE | 2025-03-02 06:01 | NUR ---
Shift Summary Pt admitted to this unit from ED for toxic metabolic encepholopothy. Pt is mildly confused, AOx2-3. Bed alarm has been on and was triggered 2 times. She rcvd electrolytes, abx and sodium bicarb in the ED which was running when she arrived here. She recieved a bed bath shortly after arrival to medical floor. Pt is on tele running SR-ST with no events. She is continent and cooperative with care. She is 1 assist with a FWW.
[2025-03-02 07:44] VITALS: BP 169/82
[2025-03-02] MEDS ORDERED: Sodium Bicarb 8.4% Inj 75 MEQ in Sodium Chloride 0.45% 1,000 ML IV ONE (08:05)
[2025-03-02] MEDS ORDERED: Enoxaparin 40 MG/0.4 ML SYR SC SCH (09:00)
[2025-03-02 11:13] VITALS: BP 157/64
[2025-03-02 14:39] LABS: Anion Gap 9.0 mmol/L (3-11); Blood Urea Nitrogen 51.0 mg/dL (8-24); CO2, Blood 16.0 mmol/L (21-32); Calcium, Blood 7.7 mg/dL (8.5-10.1); Chloride, Blood 115.0 mmol/L (98-108); Creatinine, Blood 1.62 mg/dL (0.40-1.00); Glucose, Blood 153.0 mg/dL (70-99); Potassium, Blood 3.1 mmol/L (3.5-5.5); Sodium, Blood 137.0 mmol/L (136-145)
[2025-03-02 15:29] VITALS: BP 158/73
--- NOTE | 2025-03-02 16:44 | NUR ---
SHIFT SUMMARY NO ACUTE CHANGES, A/Ox2-3, ABLE TO MAKE NEEDS KNONW AND USING CALL LIGHT APPROPRIATELY. MED REC COMPLETED AND PROVIDER RESTARTED NECESSARY HOME MEDICATIONS. TREATED FOR ACHE PER EMAR. BM TODAY - PT REPORTS FREQUENT DIARRHEA. BM TODAY MIX OF FORMED AND LOOSE STOOL. GI PANEL LAB REQUESTED POST BM SO RN UNABLE TO COLLECT THIS SHIFT. GOOD APPETITE. SODIUM BICARB ADMINISTERED PER ORDERS. POTASSIUM SUPPLEMENTS ADMINISTERED. PT CURRENTLY RESTING IN BED WITH BED IN LOWEST POSITION AND CALL LIGHT WITHIN REACH. ORDERS FOR AC/HS CBG INITIATED AND CHANGED TO ADA DIET - NO INSULIN COVERAGE ORDERS AT THIS TIME. PER PROVIDER NOTIFY IF CBG OVER 180.
[2025-03-02] MEDS ORDERED: NS 250 ML IV PRN (16:55)
[2025-03-02 20:54] VITALS: BP 163/76
--- NOTE | 2025-03-02 23:35 | NUR ---
PT AWAKE DURING SHIFT REPORT. PLEASANT AND CO-OP. FREQUENTLY FORGETFUL, BUT DOES CALL APPROPRIATELY FOR NEEDS. UP TO BTHRM USING FWW AND 1P ASSIST. SR ON TELE PER MX. MEDICATED WITH TYLENOL THIS EVENING FOR CHRONIC SHOULDER PAIN. POSSIBLE D/C TO HOME TOMORROW, PER REPORT. DENIED FURTHER NEEDS. CALL LT IN REACH.
[2025-03-03] VITALS (8 sets, daily range): BP systolic 122–178; BP diastolic 63–88
--- NOTE | 2025-03-03 04:28 | NUR ---
SHIFT SUMMARY: PT IS AOX4 AND COOPERATIVE WITH CARE. PT SLEPT THROUGH OUT NIGHT. PT IS ON TELLY. NO ACUTE CHANGES THIS SHIFT.
[2025-03-03 04:56] LABS: BASOPHILS ABSOLUTE AUTO 0.03 K/mm3 (0.00-0.23); BASOPHILS PERCENT AUTO 0 % (0-2); EOSINOPHILS ABSOLUTE AUTO 0.13 K/mm3 (0.00-0.68); EOSINOPHILS PERCENT AUTO 2 % (0-6); Hematocrit 39.3 % (33.0-51.0); Hemoglobin 13.2 g/dL (11.5-16.0); IMMATURE GRAN ABSOLUTE AUTO 0.02 K/mm3 (0.00-0.10); IMMATURE GRAN PERCENT AUTO 0 % (0-1); LYMPHOCYTES ABSOLUTE AUTO 2.62 K/mm3 (0.84-5.20); LYMPHOCYTES PERCENT AUTO 36 % (21-46); MONOCYTES ABSOLUTE AUTO 0.40 K/mm3 (0.16-1.47); MONOCYTES PERCENT AUTO 5 % (4-13); Mean Corpuscular HGB Conc 33.6 g/dL (31.5-36.5); Mean Corpuscular Volume 92 fL (80-100); NEUTROPHILS ABSOLUTE AUTO 4.18 K/mm3 (1.96-9.15); NEUTROPHILS PERCENT AUTO 57 % (41-73); NRBC ABSOLUTE 0.00 K/mm3 (0.00-0.02); NRBC Auto 0.0 /100 WBC (0.0-0.2); Platelet Count 134 K/mm3 (150-400); RDW Coefficient Variation 14.6 % (11.7-14.2); RDW Standard Deviation 48.8 fL (35.1-46.3)
[2025-03-03 05:19] LABS: Alanine Aminotransfer (ALT/SGP 17.0 U/L (12-78); Albumin, Blood 2.6 g/dL (3.4-5.0); Albumin/Globulin Ratio 0.8 (0.8-1.8); Anion Gap 8.0 mmol/L (3-11); Aspartate Aminotrans (AST/SGOT 27.0 U/L (12-37); Bilirubin, Total 0.3 mg/dL (0.1-1.0); Blood Urea Nitrogen 37.0 mg/dL (8-24); CO2, Blood 18.0 mmol/L (21-32); Calcium, Blood 8.0 mg/dL (8.5-10.1); Chloride, Blood 118.0 mmol/L (98-108); Creatinine, Blood 1.69 mg/dL (0.40-1.00); Globulin, Blood 3.4 g/dL (2.2-4.0); Glucose, Blood 104.0 mg/dL (70-99); Potassium, Blood 2.9 mmol/L (3.5-5.5); Sodium, Blood 141.0 mmol/L (136-145); Total Protein, Blood 6.0 g/dL (6.4-8.2)
[2025-03-03 14:21] LABS: Anion Gap 7.0 mmol/L (3-11); Blood Urea Nitrogen 30.0 mg/dL (8-24); CO2, Blood 21.0 mmol/L (21-32); Calcium, Blood 8.4 mg/dL (8.5-10.1); Chloride, Blood 115.0 mmol/L (98-108); Creatinine, Blood 1.43 mg/dL (0.40-1.00); Glucose, Blood 135.0 mg/dL (70-99); Potassium, Blood 3.6 mmol/L (3.5-5.5); Sodium, Blood 139.0 mmol/L (136-145)
--- NOTE | 2025-03-03 16:03 | NUR ---
SHIFT SUMMARY NO ACUTE CHANGES, A/Ox3, ABLE TO MAKE NEEDS KNOWN AND USING CALL SYSTEM APPROPRIATELY. PT DENIES DISTRESS BESIDES "STILL HAVE TO THINK ABOUT MY BREATHING". VITALS REMAIN STABLE AND O2 SATS ABOVE 92% ON RA. TREATED FOR PAIN PER EMAR. GOOD APPETITE. BLOOD SUGARS STABLE. NO BM TODAY. PT CURRENTLY RESTING IN BED WITH BED IN LOWEST POSITION AND CALL LIGHT WITHIN REACH. LIKELY DC TOMORROW AFTER PHYSICAL THERAPY EVALUATES PT.
[2025-03-03] MEDS ORDERED: Labetalol HCL 5 MG/ML 4ML Injection (Single Dose) IV PRN (17:30)
--- NOTE | 2025-03-03 18:04 | NUR ---
MANUAL BP 178/80. RN CONTACTED HOSPITALIST WHO PLACED ORDERS FOR PRN LABETALOL FOR SBP ABOVE 175. PT ASYMPTOMATIC DURING THIS TIME. RN ADMINISTERED LABETALOL PER ORDERS AND NOTIFIED APARTMENT MANAGER OF ADMINISTRATION. APPROX 10 MINUTES AFTER ADMINISTRATION COMPLETED PT BP NOW 140/88 AND CONTINUES TO BE ASYMPTOMATIC. PT CURRENTLY EATING DINNER IN BED AND TELE MONITOR REMAINING IN PLACE.
--- NOTE | 2025-03-03 19:43 | NUR ---
ASSUMPTION OF CARE: THIS RN ASSUMED CARE OF PATIENT FOR . AWAKE / ASLEEP DURING SHIFT CHANGE REPORT. LYING / SITTING UP IN BED / CHAIR c HOB ELEVATED. BREATHING EVEN AND UNLABORED c ROOM AIR / LPM/NC. CALDWELL. MOST RECENT TELE STRIP IN CHART INTERPRETED SINUS @ 80bpm. ASSISTED TO BATHROOM; 1PA c FWW. SLIGHTLY UNSTEADY UPON IMMEDIATE STANDING. NOTED TO HAVE MALODOROUS, BROWN DISCHARGE AROUND PANUS. 2cm X 2cm BOIL c 0.5cm CENRAL OS WITH TRICKLE OF BROWN DISCHARGE. WOUND CARE ORDERS TO BE OBTAINED AND APPLIED. BED IN LOWEST POSITION. CALL LIGHT WITHIN REACH. ACUTE NEEDS MET.
--- NOTE | 2025-03-03 20:19 | NUR ---
DR JURADO NOTIFIED OF LARGE ABSCESS RIGHT PANUS. PT IN SHOWER; WILL NOTIFY DR. JURADO WHEN PT OUT FOR HIM TO COME ASSESS.
[2025-03-03] MEDS ORDERED: Lactobacil 2-S.Thermo-Bifido 1 1 Cap PO SCH (21:00)
[2025-03-04 04:40] VITALS: BP 126/63
[2025-03-04 05:08] LABS: BASOPHILS ABSOLUTE AUTO 0.03 K/mm3 (0.00-0.23); BASOPHILS PERCENT AUTO 1 % (0-2); EOSINOPHILS ABSOLUTE AUTO 0.22 K/mm3 (0.00-0.68); EOSINOPHILS PERCENT AUTO 4 % (0-6); Hematocrit 35.0 % (33.0-51.0); Hemoglobin 11.3 g/dL (11.5-16.0); IMMATURE GRAN ABSOLUTE AUTO 0.03 K/mm3 (0.00-0.10); IMMATURE GRAN PERCENT AUTO 1 % (0-1); LYMPHOCYTES ABSOLUTE AUTO 2.68 K/mm3 (0.84-5.20); LYMPHOCYTES PERCENT AUTO 44 % (21-46); MONOCYTES ABSOLUTE AUTO 0.38 K/mm3 (0.16-1.47); MONOCYTES PERCENT AUTO 6 % (4-13); Mean Corpuscular HGB Conc 32.3 g/dL (31.5-36.5); Mean Corpuscular Volume 92 fL (80-100); NEUTROPHILS ABSOLUTE AUTO 2.79 K/mm3 (1.96-9.15); NEUTROPHILS PERCENT AUTO 46 % (41-73); NRBC ABSOLUTE 0.00 K/mm3 (0.00-0.02); NRBC Auto 0.0 /100 WBC (0.0-0.2); Platelet Count 126 K/mm3 (150-400); RDW Coefficient Variation 14.6 % (11.7-14.2); RDW Standard Deviation 49.2 fL (35.1-46.3)
[2025-03-04 05:33] LABS: Alanine Aminotransfer (ALT/SGP 20.0 U/L (12-78); Albumin, Blood 2.4 g/dL (3.4-5.0); Albumin/Globulin Ratio 0.8 (0.8-1.8); Anion Gap 8.0 mmol/L (3-11); Aspartate Aminotrans (AST/SGOT 21.0 U/L (12-37); Bilirubin, Total 0.1 mg/dL (0.1-1.0); Blood Urea Nitrogen 19.0 mg/dL (8-24); CO2, Blood 19.0 mmol/L (21-32); Calcium, Blood 7.9 mg/dL (8.5-10.1); Chloride, Blood 119.0 mmol/L (98-108); Creatinine, Blood 1.23 mg/dL (0.40-1.00); Globulin, Blood 3.1 g/dL (2.2-4.0); Glucose, Blood 138.0 mg/dL (70-99); Potassium, Blood 3.7 mmol/L (3.5-5.5); Sodium, Blood 142.0 mmol/L (136-145); Total Protein, Blood 5.5 g/dL (6.4-8.2)
--- NOTE | 2025-03-04 05:35 | NUR ---
END OF SHIFT SUMMARY: A&Ox4. PLEASANT AND COOPERATIVE WITH CARE. CALLS APPROPRIATELY AND IS ABLE TO ADVOCATE NEEDS EFFECTIVELY. CONTINENT OF BOWEL AND BLADDER; LBM YESTERDAY AND NO BM OR LOOSE STOOL NOTED TODAY. AMBULATES SBA c FWW. MEDS WHOLE c FLUIDS. PRN APAP FOR C/O GENERALIZED DISCOMFORT. TELE SINUS IN 80s. NOTED TO HAVE MALODOROUS DISCHARGE FROM NEW ABSCESS TO RIGHT ABDOMINAL SKIN FOLD; PT ENDORSES THIS WAS NOT PRESENT UPON ADMISSION. ORDERS FOR US (TO BE DONE IN AM), WOUND CARE, ABx AND CULTURE ABSCESS. PT COMPLIANT c ORDERS. WOUND CARE PROVIDED, CULTURE OBTAINED AND SENT TO LAB AND ABx INITIATED c BEDTIME MEDS. BED IN LOWEST POSITION, CALL LIGHT WITHIN REACH, ALL NEEDS MET. REPORT TO ONCOMING NURSE.
[2025-03-04 07:15] VITALS: BP 147/83
[2025-03-04] MEDS ORDERED: DULoxetine HCL 60 MG Capsule DR PO SCH (09:00)
[2025-03-04] MEDS ORDERED: TRESIBA FL200 UNIT/2 (13:48)
[2025-03-04 15:05] VITALS: BP 173/80
[2025-03-04 17:14] VITALS: BP 175/92
--- NOTE | 2025-03-04 17:39 | NUR ---
SHIFT SUMMARY A/Ox4, ABLE TO MAKE NEEDS KNOWN AND USING CALL SYSTEM APPROPRIATELY. ULTRASOUND OF ABCESS COMPLETED - NO CONCERNING FINDINGS PER HOSPITALIST. ABX CHANGED. IV ABX DC'D. DRESSING CHANGE COMPLETED. TREATED FOR PAIN PER EMAR - TYLENOL INEFFECTIVE, NEW ORDER FOR OXYCODONE. HYPERTENSION TREATED PER EMAR. REMAINS ON TELE. GOOD APPETITE. LIKELY DC TOMORROW. PT CURRENTLY RESTING IN BED WITH BED IN LOWEST POSITON AND CALL LIGHT WITHIN REACH.
[2025-03-04 17:45] VITALS: BP 141/90
[2025-03-04 19:42] VITALS: BP 164/80
[2025-03-05] VITALS (7 sets, daily range): BP systolic 142–191; BP diastolic 84–93
[2025-03-05 04:53] LABS: BASOPHILS ABSOLUTE AUTO 0.04 K/mm3 (0.00-0.23); BASOPHILS PERCENT AUTO 1 % (0-2); EOSINOPHILS ABSOLUTE AUTO 0.44 K/mm3 (0.00-0.68); EOSINOPHILS PERCENT AUTO 7 % (0-6); Hematocrit 36.1 % (33.0-51.0); Hemoglobin 11.8 g/dL (11.5-16.0); IMMATURE GRAN ABSOLUTE AUTO 0.01 K/mm3 (0.00-0.10); IMMATURE GRAN PERCENT AUTO 0 % (0-1); LYMPHOCYTES ABSOLUTE AUTO 2.87 K/mm3 (0.84-5.20); LYMPHOCYTES PERCENT AUTO 47 % (21-46); MONOCYTES ABSOLUTE AUTO 0.30 K/mm3 (0.16-1.47); MONOCYTES PERCENT AUTO 5 % (4-13); Mean Corpuscular HGB Conc 32.7 g/dL (31.5-36.5); Mean Corpuscular Volume 94 fL (80-100); NEUTROPHILS ABSOLUTE AUTO 2.44 K/mm3 (1.96-9.15); NEUTROPHILS PERCENT AUTO 40 % (41-73); NRBC ABSOLUTE 0.00 K/mm3 (0.00-0.02); NRBC Auto 0.0 /100 WBC (0.0-0.2); Platelet Count 140 K/mm3 (150-400); RDW Coefficient Variation 14.6 % (11.7-14.2); RDW Standard Deviation 50.4 fL (35.1-46.3)
[2025-03-05 05:12] LABS: Alanine Aminotransfer (ALT/SGP 30.0 U/L (12-78); Albumin, Blood 2.6 g/dL (3.4-5.0); Albumin/Globulin Ratio 0.8 (0.8-1.8); Anion Gap 9.0 mmol/L (3-11); Aspartate Aminotrans (AST/SGOT 28.0 U/L (12-37); Bilirubin, Total 0.3 mg/dL (0.1-1.0); Blood Urea Nitrogen 14.0 mg/dL (8-24); CO2, Blood 21.0 mmol/L (21-32); Calcium, Blood 8.0 mg/dL (8.5-10.1); Chloride, Blood 116.0 mmol/L (98-108); Creatinine, Blood 1.32 mg/dL (0.40-1.00); Globulin, Blood 3.1 g/dL (2.2-4.0); Glucose, Blood 119.0 mg/dL (70-99); Potassium, Blood 3.8 mmol/L (3.5-5.5); Sodium, Blood 142.0 mmol/L (136-145); Total Protein, Blood 5.7 g/dL (6.4-8.2)
--- NOTE | 2025-03-05 05:59 | NUR ---
PATIENT ANSWERS ALL QUESTIONS BUT IS A POOR HISTORIAN AND HAS A HARD TIME FOLLLOWING DIRECTIONS. ONE ASSIST WITH FWW TO BATHROOM. TELE NSR. SHE HAS AN OPEN ABCESS TO HER RIGHT LOWER QUAD. HOLE IS ONL 2 CM BUT THERE IS A HARD AREA MEASURING ABOUT 2 INCH X 4 INCH AROUND HOLE. HOLE IS DRAINING DARK BROWN REDDISH DISCHARGE DRESSING CHANGED. PATIENT SLEPT WELL OVER NIGHT.
--- NOTE | 2025-03-05 07:37 | NUR ---
ASSUMPTION OF CARE: THIS RN ASSUMED CARE OF PATIENT. ASLEEP DURING SHIFT CHANGE REPORT. LYING IN BED c HOB ELEVATED. BREATHING EVEN AND UNLABORED c ROOM AIR. BED IN LOWEST POSITION. CALL LIGHT WITHIN REACH. ACUTE NEEDS MET.
--- NOTE | 2025-03-05 11:38 | NUR ---
DR NJ TO BEDSIDE FOR ROUNDING.
--- NOTE | 2025-03-05 18:00 | NUR ---
END OF SHIFT SUMMARY: A&Ox4. PLEASANT AND COOPERATIVE WITH CARE. CALLS APPROPRIATELY AND IS ABLE TO ADVOCATE NEEDS EFFECTIVELY. CONTINENT OF BOWEL AND BLADDER; LBM 03/02/25. AMBULATES. MEDS WHOLE c FLUIDS. NO C / O PAIN. TELE SINUS IN 80s WITHOUT ACUTE EVENTS AND DC d TODAY. PRN LABETOLOL GIVEN FOR SBP >170 WITHOUT MUCH EFFECT; HCTZ ADDED TO REGIMEN. ANTICIPATE DC TOMORROW c HOME HEALTH. BED IN LOWEST POSITION, CALL LIGHT WITHIN REACH, ALL NEEDS MET. REPORT TO ONCOMING NURSE.
[2025-03-06 04:18] VITALS: BP 165/90
--- NOTE | 2025-03-06 06:30 | NUR ---
PATIENT SLEPT MOST THE NIGHT. DENIES PAIN. DRESSING CHANGE COMPLETE.
[2025-03-06 07:19] VITALS: BP 165/92
[2025-03-06] MEDS ORDERED: Polyethylene Glycol 3350 17 gm PO SCH (09:00)
[2025-03-06] MEDS ORDERED: AMOCLA875 PO (15:15)
[2025-03-06] MEDS ORDERED: CLON.2 PO (15:15)
[2025-03-06] MEDS ORDERED: LACT PO (15:16)
--- NOTE | 2025-03-06 15:55 | NUR ---
DISCHARGE PT AOX4, COOPERATIVE, ABLE TO MAKE NEEDS KNOWN. PT IS IND IN ROOM. SENIOR INDUSTRIAL ENGINEER TOOK OUT IV WITHOUT ISSUE. PT HAS BEEN VERY PLEASANT TODAY. PT CHOSE TO BE TRANSFERED OUT VIA WC WITH VISITOR TO PUSH WHEELCHAIR. BELONGINGS WENT WITH PT. THIS RN WENT OVER DC PAPERWORK AND SENT NEW MEDICATION TO [facility].
== END 2025-03-06 15:52 | disposition home health service (06) | DRG 917 ==
LOC: ER 11:46 → MEDS 11:47
PROVIDERS: Emergency Medicine; Student in an Organized Health Care Education/Training Program; ADMIT Hospitalist
DX: T40.721A Poisoning by synthetic cannabinoids, accidental (unintentional), initial encounter (principal); G92.8 Other toxic encephalopathy; E87.1 Hypo-osmolality and hyponatremia; N17.9 Acute kidney failure, unspecified; N39.0 Urinary tract infection, site not specified; E87.21 Acute metabolic acidosis; I12.9 Hypertensive chronic kidney disease with stage 1 through stage 4 chronic kidney disease, or unspecified chronic kidney disease; E11.22 Type 2 diabetes mellitus with diabetic chronic kidney disease; E78.5 Hyperlipidemia, unspecified; E03.9 Hypothyroidism, unspecified; F32.9 Major depressive disorder, single episode, unspecified; E11.42 Type 2 diabetes mellitus with diabetic polyneuropathy; G89.29 Other chronic pain; Z88.8 Allergy status to other drugs, medicaments and biological substances; Z79.84 Long term (current) use of oral hypoglycemic drugs; Z79.890 Hormone replacement therapy; Z79.899 Other long term (current) drug therapy; Z79.891 Long term (current) use of opiate analgesic; N18.32 Chronic kidney disease, stage 3b; E87.6 Hypokalemia; K25.9 Gastric ulcer, unspecified as acute or chronic, without hemorrhage or perforation
CPT/HCPCS: 36415; 70450; 71046; 76705; 80048; 80053; 80320; 81001; 82570; 82947; 83036; 83735; 83880; 83935; 84300; 84439; 84443; 84484; 85025; 85379; 87070; 87075; 87086; 87205; 93005; 93010; 96361; 96365; 96366; 96367; 96368; 96372; 96375; 96376; 97116; 97162; 99285-25; A9270; G0378; J0696; J1650; J3480; J7030; J7050